=== PATIENT | female | born 1985 | race Hispanic/Latino ===

== ENCOUNTER 2018-02-23 18:54 | Emergency (ER) | payer MEDICAID, OTHER ==
[2018-02-23 19:47] LABS: APPEARANCE,URINE CLEAR (CLEAR); BILIRUBIN,URINE NEGATIVE (NEGATIVE); COLOR,URINE YELLOW (YELLOW); GLUCOSE, URINE (UA) NEGATIVE (NEGATIVE); KETONES,URINE 5 mg/dL (NEGATIVE); LEUKOCYTE ESTERASE ,URINE SMALL (NEGATIVE); NITRATE,URINE NEGATIVE (NEGATIVE); OCCULT BLOOD,URINE TRACE-INTACT (NEGATIVE); PROTEIN,URINE NEGATIVE (NEGATIVE); UROBILINOGEN,URINE 0.2 mg/dL (0.2-1.0)
[2018-02-23 19:56] LABS: BACTERIA,URINE Few /HPF (None Seen); RBC,URINE 0-1 /HPF (0-1)
[2018-02-23] MEDS ORDERED: ONDANSETRON ODT 4 MG TAB ONE (19:59)
== END 2018-02-23 22:46 | disposition home or self-care (01) ==
LOC: EDH 18:54
DX: O21.9 Vomiting of pregnancy, unspecified (principal); Z3A.15 15 weeks gestation of pregnancy
CPT/HCPCS: 76805; 81001

== ENCOUNTER 2018-07-27 10:47 | Observation (INO) | payer MEDICAID ==
[~2018-07-27] VITALS: Ht 160 cm; Wt 82.6 kg
[2018-07-27] MEDS ORDERED: LACTATED RINGERS 1000ML 1,000 ML IV SCH (12:00)
[2018-07-27 12:37] LABS: APPEARANCE,URINE Clear (CLEAR); BILIRUBIN,URINE Negative (NEGATIVE); COLOR,URINE Yellow (YELLOW); GLUCOSE, URINE (UA) Negative (NEGATIVE); KETONES,URINE >=80 mg/dL (NEGATIVE); LEUKOCYTE ESTERASE ,URINE Trace (NEGATIVE); NITRATE,URINE Negative (NEGATIVE); OCCULT BLOOD,URINE Negative (NEGATIVE); PROTEIN,URINE Negative (NEGATIVE)
[2018-07-27 12:53] LABS: BACTERIA,URINE Rare /HPF (None Seen); RBC,URINE 0-1 /HPF (0-1); SQUAMOUS EPITHELIAL CELL,UR Few /HPF (0-2); WBC,URINE 0-1 /HPF (0-1)
[2018-07-27] MEDS ORDERED: ACETAMINOPHEN EXTRA STRENGTH 500 MG TABLET PO SCH (13:00)
== END 2018-07-27 15:25 | disposition home or self-care (01) ==
LOC: EDH 10:47 → LDH 10:48
PROVIDERS: ADMIT Obstetrics & Gynecology; ATTEND Obstetrics & Gynecology
DX: O60.03 Preterm labor without delivery, third trimester (principal); O21.2 Late vomiting of pregnancy; Z3A.36 36 weeks gestation of pregnancy
CPT/HCPCS: 81001; 96360; 96361 ×2; 99284; G0378 ×5

== ENCOUNTER 2019-01-28 16:19 | Emergency (ER) | payer MEDICAID, OTHER ==
[~2019-01-28 16:19] MED LIST: PNV1TABL17 PO
[2019-01-28] MEDS ORDERED: LIDOCAINE 5% TOPICAL PATCH TP ONE (16:34)
[2019-01-28] MEDS ORDERED: ACETAMINOPHEN EXTRA STRENGTH 500 MG TABLET ONE (16:34)
[2019-01-28] MEDS ORDERED: CYCLOBENZAPRINE HCL 10 MG TABLET ONE (16:34)
== END 2019-01-28 17:38 | disposition home or self-care (01) ==
LOC: EDH 16:19
DX: M54.5 Low back pain (principal)
CPT/HCPCS: 81025

== ENCOUNTER 2019-11-11 22:20 | Emergency (ER) | payer MEDICAID ==
[2019-11-11] MEDS ORDERED: SODIUM CHLORIDE 0.9% 1000ML 1,000 ML IV ONE (22:21)
[2019-11-11] MEDS ORDERED: ONDANSETRON HCL 4 MG/2 ML VIAL ONE ×2 (22:44→22:48)
[2019-11-11 23:00] LABS: BASOPHILS % (AUTO) 0.2 % (0.0-5.0); EOSINOPHILS % (AUTO) 1.2 % (0.0-8.0); HEMATOCRIT 37.3 % (36-48); LYMPHOCYTES % (AUTO) 26.2 % (21.0-51.0); MEAN CORPUSCULAR HEMOGLOBIN 29.4 pg (27.0-33.0); MEAN CORPUSCULAR HGB CONC 33.2 g/dL (32.0-36.0); MEAN CORPUSCULAR VOLUME 88.4 fL (79-99); MONOCYTES % (AUTO) 8.3 % (3.0-13.0); NEUTROPHILS % (AUTO) 63.8 % (40.0-77.0); PLATELET COUNT (AUTO) 347 K/uL (130-400); RED BLOOD CELL COUNT(AUTO) 4.22 MIL/uL (4.00-5.50); RED CELL DISTRIBUTION WIDTH 13.4 % (11.0-15.5); WHITE BLOOD COUNT (AUTO) 8.8 K/uL (4.8-10.8)
[2019-11-11 23:14] LABS: CREATININE 0.7 mg/dL (0.5-1.5); POTASSIUM 3.7 mmol/L (3.5-5.1)
[2019-11-11 23:18] LABS: ALBUMIN 3.3 g/dL (3.5-5.0); BILIRUBIN,TOTAL 0.4 mg/dL (0.2-1.0); TOTAL PROTEIN, SERUM 7.4 g/dL (6.0-8.3)
== END 2019-11-12 00:02 | disposition home or self-care (01) ==
LOC: EDH 22:20
DX: O21.0 Mild hyperemesis gravidarum (principal); Z98.890 Other specified postprocedural states; Z3A.13 13 weeks gestation of pregnancy
CPT/HCPCS: 36415; 80053; 85025; 96361; 96374; 99283; J2405; J7030

== ENCOUNTER 2019-12-05 22:51 | Emergency (ER) | payer MEDICAID ==
[2019-12-05] MEDS ORDERED: SODIUM CHLORIDE 0.9% 1000ML 1,000 ML IV ONE (22:52)
[2019-12-06] MEDS ORDERED: ONDANSETRON HCL 4 MG/2 ML VIAL ONE (00:29)
[2019-12-06 01:02] LABS: APPEARANCE,URINE Clear (CLEAR); BILIRUBIN,URINE Negative (NEGATIVE); COLOR,URINE Yellow (YELLOW); GLUCOSE, URINE (UA) Negative (NEGATIVE); KETONES,URINE Negative (NEGATIVE); LEUKOCYTE ESTERASE ,URINE Trace (NEGATIVE); NITRATE,URINE Negative (NEGATIVE); OCCULT BLOOD,URINE Negative (NEGATIVE); PROTEIN,URINE Negative (NEGATIVE)
[2019-12-06 01:37] LABS: CREATININE 0.5 mg/dL (0.5-1.5); POTASSIUM 3.4 mmol/L (3.5-5.1)
[2019-12-06 01:40] LABS: ALBUMIN 3.1 g/dL (3.5-5.0); BILIRUBIN,TOTAL 0.3 mg/dL (0.2-1.0); TOTAL PROTEIN, SERUM 7.2 g/dL (6.0-8.3)
[2019-12-06 01:43] LABS: BACTERIA,URINE None Seen /HPF (None Seen); MUCUS,URINE Few LPF (None Seen); RBC,URINE 0-1 /HPF (0-1); SQUAMOUS EPITHELIAL CELL,UR Few /HPF (0-2)
[2019-12-06 01:44] LABS: BASOPHILS % (AUTO) 0.2 % (0.0-5.0); HEMATOCRIT 36.8 % (36-48); LYMPHOCYTES % (AUTO) 20.9 % (21.0-51.0); MEAN CORPUSCULAR HEMOGLOBIN 29.6 pg (27.0-33.0); MEAN CORPUSCULAR HGB CONC 33.7 g/dL (32.0-36.0); MEAN CORPUSCULAR VOLUME 87.8 fL (79-99); MONOCYTES % (AUTO) 7.5 % (3.0-13.0); NEUTROPHILS % (AUTO) 70.1 % (40.0-77.0); PLATELET COUNT (AUTO) 357 K/uL (130-400); RED BLOOD CELL COUNT(AUTO) 4.19 MIL/uL (4.00-5.50); RED CELL DISTRIBUTION WIDTH 13.5 % (11.0-15.5); WHITE BLOOD COUNT (AUTO) 9.9 K/uL (4.8-10.8)
== END 2019-12-06 02:32 | disposition home or self-care (01) ==
LOC: EDH 22:51
DX: O21.0 Mild hyperemesis gravidarum (principal); O26.892 Other specified pregnancy related conditions, second trimester; E86.9 Volume depletion, unspecified; Z3A.17 17 weeks gestation of pregnancy
CPT/HCPCS: 36415; 80053; 81001; 85025; 87088; 96361; 96374; 99283; J2405; J7030

== ENCOUNTER 2022-03-04 21:01 | Emergency (ER) | payer MEDICAID ==
[~2022-03-04] VITALS: Ht 160 cm; Wt 74.8 kg
[2022-03-04 21:02] VITALS: BP 137/86
[2022-03-04] MEDS ORDERED: NAPR-1180 PO (21:27)
[2022-03-04] MEDS ORDERED: GABA300C PO (21:27)
[2022-03-04] MEDS ORDERED: GABAPENTIN 300 MG CAPSULE PO SCH (21:30)
[2022-03-04] MEDS ORDERED: KETOROLAC 60 MG VIAL (30MG/ML) IM ONE ×2 (21:30→21:35)
== END 2022-03-04 21:50 | disposition home or self-care (01) ==
LOC: EDH 21:01
DX: N64.4 Mastodynia (principal); Z98.890 Other specified postprocedural states
CPT/HCPCS: 99283; 96372; J1885

== ENCOUNTER 2024-10-28 18:41 | Emergency (ER) | payer MEDICAID, OTHER ==
[~2024-10-28] VITALS: Ht 160 cm; Wt 81.6 kg
[~2024-10-28 18:41] MED LIST changes: +GABA300C PO; +NAPR-1180 PO
[2024-10-28 19:01] LABS: APPEARANCE,URINE CLOUDY (CLEAR); GLUCOSE, URINE (UA) NEGATIVE (NEGATIVE); LEUKOCYTE ESTERASE ,URINE 500 Leu/uL (NEGATIVE); NITRATE,URINE NEGATIVE (NEGATIVE); OCCULT BLOOD,URINE NEGATIVE (NEGATIVE)
[2024-10-28 19:27] LABS: CREATININE 1.0 mg/dL (0.5-1.0); GLOMERULAR FILTR. RATE CALC 74.0 mL/min (>90); GLUCOSE,RANDOM 138.0 mg/dL (70-105); SODIUM SERUM 138.0 mmol/L (136-145); UREA NITROGEN, BLOOD 9.0 mg/dL (7-18)
[2024-10-28 19:28] LABS: SQUAMOUS EPITHELIAL CELL,UR MANY /HPF (0-2)
[2024-10-28 19:31] LABS: IMMATURE GRANULOCYTE ABSOLUTE 0.02 K/uL (0-1); NUCLEATED RED BLOOD CELLS 0.0 % (0.0-0.19); PLATELET COUNT (AUTO) 445 K/uL (130-400); RED BLOOD CELL COUNT(AUTO) 4.29 MIL/uL (4.00-5.50); RED CELL DISTRIBUTION WIDTH 13.7 % (11.0-15.5); WHITE BLOOD COUNT (AUTO) 8.9 K/uL (4.8-10.8)
--- NOTE | 2024-10-28 20:06 | ERN ---
General Chief Complaint: Chest Wall Pain Stated Complaint: CHEST WALL PAIN X ONE WEEK Time Seen by MD: 18:44 Time Seen by Midlevel: 18:44 Source: patient History of Present Illness Initial Comments 39-year-old female who presents to the emergency department due to chest pain onset last night. Patient reports she had a similar pain last week that lasted three days. She was seen earlier at [facility]. Patient states she has been taking ibuprofen last dose at 10:00 a.m.. Denies any shortness of breath, abdominal pain, nausea, vomiting or further associated symptoms. PMHx PCOS Allergies: Coded Allergies: No Known Allergies (Unverified Allergy, Unknown, 07/27/18) Home Meds Active Scripts Cephalexin (Cephalexin) 500 Mg Tablet, 1 TAB PO BID for 7 Days, #14 TAB 0 Refills Prov:JOEY STINSON 10/28/24 Gabapentin (Neurontin) 300 Mg Capsule, 300 MG PO BID, #60 CAP Prov:MORENO JOSHI 03/04/22 Naproxen (Naprosyn) 500 Mg Tablet, 500 MG PO BIDPC, #60 TAB Prov:MORENO JOSHI 03/04/22 Reported Medications Pnv Cmb#21/Iron/Folic Acid ( Complete Caplet) 1 Each Tablet, 1 EACH PO DAILY, TAB 08/14/18 Past Medical History Past Medical History: Other Medical History Other: PCOS Past Surgical History: BTL, Surgical History Other: TUBAL LIGATION Family History Family History: Negative Social History Social History: Lives with family Female( History) LMP: Oct 12, 2024 ROS Dictation Constitutional: Negative for fever,chills, and weight loss Eyes: Negative for injury, pain,redness, and discharge ENT: Negative for injury,pain or swelling Cardiovascular: Positive for chest pain Negative for palpitations, and edema Respiratory: Negative for shortness of breath, cough, and wheezing, Abdomen/GI: Negative for abdominal pain, nausea, vomiting, diarrhea, and constipation Back: Negative for injury and pain : Negative for painful urination, bleeding or discharge MS/Extremity: Negative for injury and deformity Skin: Negative for rash, and discoloration Neuro: Negative for headache, weakness, numbness, tingling, and seizure Psych: Negative for suicide ideation, homicidal ideation, and hallucinations Physical Exam Physical Exam Dictation General: awake, alert, no acute distress Head/Face: Normocephalic, atraumatic Eyes: PERRL, EOMI, normal conjunctiva ENT: oral cavity clear, oral mucosa moist Neck: Supple, normal range of motion Cardiovascular: RRR, normal S1/S2 Respiratory: CTAB, no respiratory distress, no rales or wheezes Skin: Warm, dry, normal turgor, no rash MS/Extremity: Pulses equal, no cyanosis, neurovascular intact, FROM Neuro: COAx4, GCS 15, strength 5/5, CN 2-12 intact, normal cerebellar exam, normal gait Psych: Normal behavior, mood, and affect normal Results Laboratory and Microbiology Lab and Micro Result Laboratory Tests Test 10/28/24 18:55 10/28/24 19:03 10/28/24 20:17 Urine Color LIGHT-YELLOW (YELLOW) Urine Appearance CLOUDY (CLEAR) H Urine pH 7.0 (5.0-8.0) Urine Specific [place] 1.020 (1.001-1.031) Urine Protein NEGATIVE mg/dL (NEGATIVE) Urine Glucose (UA) NEGATIVE mg/dL (NEGATIVE) Urine Ketones NEGATIVE mg/dL (NEGATIVE) Urine Occult Blood NEGATIVE (NEGATIVE) Urine Nitrate NEGATIVE (NEGATIVE) Urine Bilirubin NEGATIVE mg/dL (NEGATIVE) Urine Urobilinogen 0.2 mg/dL (0.2-1.0) Urine Leukocyte Esterase 500 Ana/uL (NEGATIVE) H Urine RBC 2-5 /HPF (0-1) H Urine WBC 51-100 /HPF (0-1) H Urine Squamous Epithelial Cells MANY /HPF (0-2) Urine Bacteria FEW /HPF (None Seen) Urine HCG, Qualitative NEGATIVE (NEGATIVE) White Blood Count 8.9 K/uL (4.8-10.8) Red Blood Count 4.29 MIL/uL (4.00-5.50) Hemoglobin 12.5 g/dL (12.0-16.0) Hematocrit 36.6 % (36-48) Mean Corpuscular Volume 85.3 fL (79-99) Mean Corpuscular Hemoglobin 29.1 pg (27.0-33.0) Mean Corpuscular Hemoglobin Concent 34.2 g/dL (32.0-36.0) Red Cell Distribution Width 13.7 % (11.0-15.5) Platelet Count 445 K/uL (130-400) H Mean Platelet Volume 9.6 fL (7.5-10.5) Immature Granulocyte % (Auto) 0.2 % (0-1) Neutrophils (%) (Auto) 56.9 % (40.0-77.0) Lymphocytes (%) (Auto) 31.8 % (21.0-51.0) Monocytes (%) (Auto) 6.4 % (3.0-13.0) Eosinophils (%) (Auto) 4.1 % (0.0-8.0) Basophils (%) (Auto) 0.6 % (0.0-5.0) Neutrophils # (Auto) 5.1 K/uL (1.8-7.7) Lymphocytes # (Auto) 2.8 K/uL (1.0-4.8) Monocytes # (Auto) 0.6 K/uL (0.1-1.0) Eosinophils # (Auto) 0.37 K/uL (0.00-0.70) Basophils # (Auto) 0.05 K/uL (0.00-0.20) Absolute Immature Granulocyte (auto 0.02 K/uL (0-1) Nucleated Red Blood Cells 0.0 % (0.0-0.19) Sodium Level 138 mmol/L (136-145) Potassium Level 3.6 mmol/L (3.5-5.1) Chloride Level 105 mmol/L (101-111) Carbon Dioxide Level 23 mmol/L (21-32) Blood Urea Nitrogen 9 mg/dL (7-18) Creatinine 1.0 mg/dL (0.5-1.0) Glomerular Filtration Rate Calc 74 mL/min (>90) Random Glucose 138 mg/dL (70-105) H Total Calcium 8.2 mg/dL (8.5-10.1) L Troponin I High Sensitivity < 4 ng/L (4-50) L < 4 ng/L (4-50) L Labs Reviewed?: Yes EKG/XRAY/US/CT/MRI EKG Comment Date: 10/28/2024 Time: 1900 Rate: 81 EKG interpretation: Sinus rhythm, no STEMI Reviewed by ED Attending X-RAY Comment REASON: CP ORDERING PHYSICIAN: JOEY STINSON PROCEDURE: CXR1VW - CHEST 1VW EXAM: CR Chest, 1 View. CLINICAL HISTORY: CP COMPARISON: None provided. FINDINGS: LUNGS: There is no mass, infiltrate, or acute pulmonary abnormality. PLEURAL SPACES: No pleural effusion or pneumothorax. MEDIASTINUM: The cardiomediastinal silhouette is within normal limits. BONES: No aggressive appearing osseous lesion seen. IMPRESSION: No acute cardiopulmonary pathology is evident. /[place] DICTATED BY: SPARKLE CORNELIUS MD DATE: 10/28/242115 MDM MDM: Differential diagnosis: Muscular chest pain, acid reflux, AL Rationale: 39-year-old female who presents to the emergency department due to c hest pain onset last night. Patient reports she had a similar pain last week that lasted three days. She was seen earlier at [facility]. Patient states she has been taking ibuprofen last dose at 10:00 a.m.. Denies any shortness of breath, abdominal pain, nausea, vomiting or further associated symptoms. PMHx PCOS Labs obtained CBC nonspecific, chemistry nonspecific, troponin within normal limits x2. EKG within normal limits. UA indicates a urinary tract infection with 500 leukocyte esterase and 51-100 WBCs. Patient was administered ketorolac and Rocephin in the ED. Antibiotics prescribed for outpatient treatment. Patient educated for findings and diagnosis. Advised to follow up with PCP. Return to the emergency department for any worsening symptoms. Patient verbalized understanding. Patient stable for discharge. There are no social concerns with this patient. I independently interpreted the test that were performed, results were reviewed by me and considered findings on radiology if ordered. Medical management and examination interpretation discussions were had by me with other qualified healthcare professionals as indicated for the patient's care. ED Course Orders Procedure Category Date Status Time Cbc With Differential LAB 10/28/24 Complete 18:48 Basic Metabolic Panel LAB 10/28/24 Complete 18:48 Urinalysis LAB 10/28/24 Complete W/Microscopic 18:48 Troponin I High LAB 10/28/24 Complete Sensitivity 18:48 12 Lead Ekg Tracing- EKG 10/28/24 Logged Technical 18:48 Chest 1vw RAD 10/28/24 Resulted 18:48 Culture Urine BANDAR 10/28/24 In Process 19:27 ,Urine Test LAB 10/28/24 Complete 19:49 Troponin I High LAB 10/28/24 Complete Sensitivity 20:12 Ketorolac PHA 10/28/24 Complete Tromethamine 15mg/Ml 20:30 Ceftriaxone 1g Vial PHA 10/28/24 Complete (Rocephine 1g Inj) 20:30 Current Medications Medications (Trade) Dose Ordered Sig/Kamala Route PRN Reason Start Time Stop Time Status Last Admin Dose Admin Ceftriaxone Sodium (ROCEphine 1G INJ) 1 gm ONCE ONCE IM 10/28/24 20:30 10/28/24 20:35 DC 10/28/24 20:44 Ketorolac Tromethamine (toRADol) 15 mg ONCE ONCE IM 10/28/24 20:30 10/28/24 20:35 DC 10/28/24 20:45 Vital Signs Date Time Temp Pulse Resp B/P (MAP) Pulse Ox O2 Delivery O2 Flow Rate FiO2 10/28/24 18:51 98.2 82 16 130/82 98 Room Air* 0 21 10/28/24 18:44 98.2 85 16 132/84 99 Room Air 0 DX & DISP Disposition: Discharge Departure Impression: Primary Impression: Chest pain with low risk for cardiac etiology Additional Impression: UTI (urinary tract infection) Condition: Stable Scripts Cephalexin (Cephalexin) 500 Mg Tablet 1 TAB PO BID for 7 Days, #14 TAB 0 Refills Prov: JOEY STINSON 10/28/24 Additional Instructions: Discharge home. Rest. Follow up with primary care in 24 hours. Return to the ER for any acute changes or worsening symptoms. If any medications were prescribed take as directed. Okay to continue home medications unless otherwise discussed during your visit in the emergency room today. Patient was also advised to follow-up with primary care physician in 1 to 2 days for continued monitoring. Referrals: NONE (PCP) I performed the substantive portion of the visit. I have reviewed and personally made and approve the management plan that is documented in the notes by myself or the ROBB. I acknowledge full responsibility for the patient's management plan. JOEY STINSON Oct 28, 2024 20:06
--- NOTE | 2024-10-28 20:16 | HMCIMG ---
EXAM: CR Chest, 1 View. CLINICAL HISTORY: CP COMPARISON: None provided. FINDINGS: LUNGS: There is no mass, infiltrate, or acute pulmonary abnormality. PLEURAL SPACES: No pleural effusion or pneumothorax. MEDIASTINUM: The cardiomediastinal silhouette is within normal limits. BONES: No aggressive appearing osseous lesion seen. IMPRESSION: No acute cardiopulmonary pathology is evident. /[place]
[2024-10-28] MEDS ORDERED: CEPH500T PO (21:03)
[2024-10-28 21:06] VITALS: BP 125/80; PULSE 80; RESP 16; TEMP 98.3; O2SAT 98
--- NOTE | 2024-10-29 06:37 | EKG ---
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
== END 2024-10-28 21:13 | disposition home or self-care (01) ==
LOC: EDH 18:41
DX: R07.89 Other chest pain (principal); N39.0 Urinary tract infection, site not specified; Z79.899 Other long term (current) drug therapy; Z98.51 Tubal ligation status
CPT/HCPCS: 99285; 71045; 84484 ×2; 80048; 85025; 87086; 81001; 81025; 36415; 96372 ×2; 93005; J1885; J0696

== ENCOUNTER 2024-10-30 01:27 | Emergency (ER) | payer OTHER ==
[~2024-10-30] VITALS: Ht 160 cm; Wt 86.2 kg
[~2024-10-30 01:27] MED LIST changes: +CEPH500T PO
--- NOTE | 2024-10-30 01:57 | ERN ---
ED Note History of Present Illness Stated Complaint: C/O CHEST WALL PAIN; Chief Complaint: Chest Wall Pain Time Seen by MD: :34 Time Seen by Midlevel: 01:34 Dictation: The patient is a 39-year-old female with past medical history of PCOS who presents to the emergency department with complaints of left-sided chest pain. Patient reports chest pain has been going on for two weeks. Was seen at [facility] on Monday and was discharged. Patient was also seen here a few days ago and released for chest wall pain. Patient denies any chest trauma. Reports pain is worse with movement. Patient stated that this left-sided breast pain has been going on for almost 6 years and initially she was evaluated by Dr. Correa, infant babysitter who felt that it was a hormonal imbalance and her prolactin levels were high. Around the time when she had the pain she also had nipple discharge which prompted checking prolactin levels. Patient was told she had high prolactin levels and she was recommended control pills to balance her hormones. Eventually she switched OBGYN and has been placed on control again to balance her hormones and she was also told she might have PCOS. Ultrasound of the breast 2 years ago showed a small cyst in the left breast. Patient has been to multiple doctors and hospitals and was not convinced with the explanations. She stopped taking the oral contraceptive a few weeks ago. She has been suffering severe pain in the left breast lateral area more towards anterior axillary line for the past 1 week and today she was crying extremely loudly and appeared uncomfortable due to excruciating pain Temperature 98 pulse 86 respirations 20 blood pressure 135/87 with a pulse oximetry of 98% on room air Allergies: Coded Allergies: No Known Allergies (Unverified Allergy, Unknown, 07/27/18) Home Meds Active Scripts Oxycodone HCl (Oxycodone HCl) 5 Mg Tablet, 1 TAB PO [id number] PRN for pain for 5 Days, #10 TAB 0 Refills Prov:MELODY CARROLL MD 10/30/24 Meloxicam (Meloxicam) 7.5 Mg Tablet, 1 TAB PO DAILY for breast pain for 15 Days, #15 TAB 0 Refills Prov:MELODY CARROLL MD 10/30/24 Cephalexin (Cephalexin) 500 Mg Tablet, 1 TAB PO BID for 7 Days, #14 TAB 0 Refills Prov:JOEY STINSON 10/28/24 Gabapentin (Neurontin) 300 Mg Capsule, 300 MG PO BID, #60 CAP Prov:MORENO JOSHI 03/04/22 Naproxen (Naprosyn) 500 Mg Tablet, 500 MG PO BIDPC, #60 TAB Prov:MORENO JOSHI 03/04/22 Reported Medications Pnv Cmb#21/Iron/Folic Acid ( Complete Caplet) 1 Each Tablet, 1 EACH PO DAILY, TAB 08/14/18 Past Medical History Past Medical History: No Pertinent History Additional Past Medical Hx: PCOS Surgical History: Other, Surgical History Other: TUBAL LIGATION Family History: Negative Social History: Lives with family History: Not Applicable (Patient had tubal ligation) LMP: Oct 09, 2024 RN Note Reviewed/Agreed w/PFSH: Yes Review of System Dictation Constitutional: Negative for fever,chills, and weight loss Eyes: Negative for injury, pain,redness, and discharge ENT: Negative for injury,pain or swelling Cardiovascular: Negative for palpitations, and edema positive for chest pain Respiratory: Negative for shortness of breath, cough, and wheezing, Abdomen/GI: Negative for abdominal pain, nausea, vomiting, diarrhea, and constipation Back: Negative for injury and pain : Negative for injury, bleeding and discharge MS/Extremity: Negative for injury and deformity Skin: Negative for rash, and discoloration Neuro: Negative for headache, weakness, numbness, tingling, and seizure Psych: Negative for suicide ideation, homicidal ideation, and hallucinations Initial Vital Sign VS Vital Signs Date Time Temp Pulse Resp B/P (MAP) Pulse Ox O2 Delivery O2 Flow Rate FiO2 10/30/24 01:28 98.8 86 20 135/87 98 Room Air 10/30/24 02:15 0 21 Physical Exam Dictation Vital Signs reviewed General Appearance: Alert, oriented x 3, no acute distress, well developed, nourished. Head and Face: non-traumatic. Eyes: PERRL, pink conjunctivas, eyelid no trauma, anterior chamber with arcus senilis. Ears: Pinnas intact and no signs of trauma or erythema ear canals clear and no discharge TM no erythema Nose: No discharge, no bleeding. Oropharynx: Mouth normal, tongue pink. pharynx clear,no erythema, tonsils no exudates, no abscesses noted, mucous membrane moist Neck: Supple, non-tender, no thyromegaly, no masses, no JVD, no bruits Breast: Left breast lateral area is extremely tender to touch no erythema induration or any drainage no open wounds. Chest: Left-sided chest tenderness, no crepitus, no paradoxical movement, no retractions no wounds to chest Lungs:Clear, well-ventilated, symmetric, no rales, no wheezing, no rhonchi, no stridor, good breath sounds bilaterally Heart: Regular rate, regular rhythm, no murmur, no gallops Vascular: no peripheral edema, Abdomen: Soft, positive bowel sounds, nondistended, no guarding, nontender, no rebound, no masses no hepatomegaly, no splenomegaly, no Estes's sign, no hernias. Rectal: Deferred Genital: Deferred Neurological: Normal speech, motor function intact, sensory function intact Musculoskeletal: Neck nontender, full range of motion, back nontender, full range of motion, Extremities: nontender, full range of motion Skin: Color pink, dry, no turgor, no rash, no lacerations, no abrasions, no contusions. Lymphatic: Deferred Results (Laboratory/Radiology) Laboratory/Radiology Laboratory Tests Test 10/30/24 01:58 White Blood Count 11.2 K/uL (4.8-10.8) H Red Blood Count 4.42 MIL/uL (4.00-5.50) Hemoglobin 12.8 g/dL (12.0-16.0) Hematocrit 37.9 % (36-48) Mean Corpuscular Volume 85.7 fL (79-99) Mean Corpuscular Hemoglobin 29.0 pg (27.0-33.0) Mean Corpuscular Hemoglobin Concent 33.8 g/dL (32.0-36.0) Red Cell Distribution Width 13.7 % (11.0-15.5) Platelet Count 451 K/uL (130-400) H Mean Platelet Volume 9.2 fL (7.5-10.5) Immature Granulocyte % (Auto) 0.3 % (0-1) Neutrophils (%) (Auto) 58.3 % (40.0-77.0) Lymphocytes (%) (Auto) 29.4 % (21.0-51.0) Monocytes (%) (Auto) 7.8 % (3.0-13.0) Eosinophils (%) (Auto) 3.8 % (0.0-8.0) Basophils (%) (Auto) 0.4 % (0.0-5.0) Neutrophils # (Auto) 6.5 K/uL (1.8-7.7) Lymphocytes # (Auto) 3.3 K/uL (1.0-4.8) Monocytes # (Auto) 0.9 K/uL (0.1-1.0) Eosinophils # (Auto) 0.43 K/uL (0.00-0.70) Basophils # (Auto) 0.05 K/uL (0.00-0.20) Absolute Immature Granulocyte (auto 0.03 K/uL (0-1) Nucleated Red Blood Cells 0.0 % (0.0-0.19) Sodium Level 138 mmol/L (136-145) Potassium Level 3.5 mmol/L (3.5-5.1) Chloride Level 105 mmol/L (101-111) Carbon Dioxide Level 26 mmol/L (21-32) Blood Urea Nitrogen 14 mg/dL (7-18) Creatinine 0.7 mg/dL (0.5-1.0) Glomerular Filtration Rate Calc 114 mL/min (>90) Random Glucose 122 mg/dL (70-105) H Total Calcium 8.4 mg/dL (8.5-10.1) L Total Bilirubin 0.3 mg/dL (0.2-1.0) Aspartate Amino Transf (AST/SGOT) 16 U/L (10-37) Alanine Aminotransferase (ALT/SGPT) 18 U/L (12-78) Alkaline Phosphatase 99 U/L (50-136) Total Creatine Kinase 44 U/L (21-232) Troponin I High Sensitivity < 4 ng/L (4-50) L Total Protein 7.3 g/dL (6.0-8.3) Albumin 3.6 g/dL (3.5-5.0) Serum Test, Qualitative NEGATIVE (NEGATIVE) Labs Reviewed?: Yes ED Course ED Course Orders Procedure Category Date Status Time Cbc With Differential LAB 10/30/24 Complete 01:52 Chest 1vw RAD 10/30/24 Resulted 01:52 Creatine Kinase, Total LAB 10/30/24 Complete 01:52 Troponin I High LAB 10/30/24 Complete Sensitivity 01:52 Cyclobenzaprine Hcl PHA 10/30/24 Complete (Cyclobenzaprine Hcl 02:00 Ketorolac 60mg/2ml PHA 10/30/24 Complete (Toradol 60mg/2ml) 02:00 12 Lead Ekg Tracing- EKG 10/30/24 Logged Technical 01:52 Testing, LAB 10/30/24 Complete Serum Hcg 02:30 Hydromorphone 1 Mg PHA 10/30/24 Complete Inj (Dilaudid 1mg Inj 03:00 Ondansetron 4mg Inj PHA 10/30/24 Complete (Zofran 4mg Inj) 03:00 Us Breast Limited US 10/30/24 Resulted Unilateral 02:31 Comprehensive LAB 10/30/24 Complete Metabolic Panel 01:58 Current Medications Medications (Trade) Dose Ordered Sig/Kamala Route PRN Reason Start Time Stop Time Status Last Admin Dose Admin Cyclobenzaprine HCl (Cyclobenzaprine HCl) 10 mg ONCE ONCE PO 10/30/24 02:00 10/30/24 02:35 DC 10/30/24 02:08 Hydromorphone HCl (DiLAUDid 1MG INJ) 1 mg ONCE ONCE IVP 10/30/24 03:00 10/30/24 03:01 DC 10/30/24 03:13 Ketorolac Tromethamine (toRADol 60MG/ 2ML) 60 mg ONCE ONCE IM 10/30/24 02:00 10/30/24 02:35 DC 10/30/24 02:08 Ondansetron HCl (zoFRAN 4MG INJ) 4 mg ONCE ONCE IVP 10/30/24 03:00 10/30/24 03:01 DC 10/30/24 03:13 Vital Signs Date Time Temp Pulse Resp B/P (MAP) Pulse Ox O2 Delivery O2 Flow Rate FiO2 10/30/24 02:15 98.8 86 18 132/91 99 Room Air* 0 21 10/30/24 01:28 98.8 86 20 135/87 98 Room Air We will perform diagnostic labs, advanced imaging and administer medications according to the patient's complaint. Once the results are available, will review and personally interpreted the labs to rule out any acute life- threatening emergency the trach require immediate intervention and treatment. I will then re-evaluate the patient after treatment and diagnostic exams have return to determine whether the patient requires any further testing, can safely be discharged home or need further admission to hospital for additional treatment and evaluation. Labs reviewed CBC showed a white count of 11.2 hemoglobin of 12.8 platelets 451. BNP 7 was with a normal limits potassium was 3.5. Chest x-ray was unremarkable for any infiltrates effusions. 5:00 a.m. left breast ultrasound was done which was unremarkable for any breast cysts or masses. Upon my re-evaluation multiple times she was much more comfortable able to talk and give me the whole history. I educated her on cyclical mastalgia and she needs to maintain a journal. Patient and spouse verbalized full understanding. I recommended that she follow up with her OBGYN and not abruptly stop her oral contraceptives. Medical Decision Making MDM The patient is a 39-year-old female with past medical history of PCOS who presents to the emergency department with complaints of left-sided chest pain. Patient reports chest pain has been going on for two weeks. Was seen at [facility] on Monday and was discharged. Patient was also seen here a few days ago and released for chest wall pain. Patient denies any chest trauma. Reports pain is worse with movement. Differential diagnosis: ACS, pneumonia, costochondritis, pneumothorax Need for hospitalization: Patient does not meet criteria for hospitalization. There are no social concerns with this patient. Problem List Problem List: (1) Cyclical mastalgia (2) Breast pain, left (3) PCOS (polycystic ovarian syndrome) DX & DISP Disposition: Discharge Departure Impression: Primary Impression: Breast pain, left Additional Impressions: PCOS (polycystic ovarian syndrome), Cyclical mastalgia Condition: Stable Scripts Oxycodone HCl (Oxycodone HCl) 5 Mg Tablet 1 TAB PO [id number] PRN for pain for 5 Days, #10 TAB 0 Refills Prov: MELODY CARROLL MD 10/30/24 Meloxicam (Meloxicam) 7.5 Mg Tablet 1 TAB PO DAILY for breast pain for 15 Days, #15 TAB 0 Refills Prov: MELODY CARROLL MD 10/30/24 Additional Instructions: Patient and the caregiver have been informed of all the diagnostic tests and the imaging conducted during the today's visit to the emergency room and has verbalized understanding of the results I have personally reviewed and interpreted all diagnostic exams performed here in the ER today as well as the vital signs documented by the nursing staff. The patient is now being discharged to home and should follow up with the primary care physician or the specialist as directed by the ER staff. Follow-up with primary care provider in 1 to 2 days. Take medications as directed here in the emergency room. Okay to continue home medications unless otherwise discussed during your visit in the emergency room today. Return to your nearest emergency room if symptoms worsen or if there is no improvement. Call 911 if you need immediate assistance. Take Tylenol or Motrin [id number] as needed and if no contraindications are present. Increase oral hydration. A wound culture or urine culture was ordered here in the emergency room department please follow-up with primary care provider and advise them to get repeat ports from our facility. If you had any [place] wrap/splints that were applied here, please do not remove them until you see your primary care or specialty. Referrals: SELF,REFERRAL (PCP) HANNAH CROUCH Oct 30, 2024 01:57 MELODY CARROLL MD Oct 30, 2024 05:01
[2024-10-30 02:07] LABS: IMMATURE GRANULOCYTE ABSOLUTE 0.03 K/uL (0-1); NUCLEATED RED BLOOD CELLS 0.0 % (0.0-0.19); PLATELET COUNT (AUTO) 451 K/uL (130-400); RED BLOOD CELL COUNT(AUTO) 4.42 MIL/uL (4.00-5.50); RED CELL DISTRIBUTION WIDTH 13.7 % (11.0-15.5); WHITE BLOOD COUNT (AUTO) 11.2 K/uL (4.8-10.8)
[2024-10-30] MEDS: CYCLOBENZAPRINE HCL 10 MG TABLET PO ONE (02:08)
[2024-10-30 02:16] LABS: CREATININE 0.7 mg/dL (0.5-1.0); GLOMERULAR FILTR. RATE CALC 114.0 mL/min (>90); GLUCOSE,RANDOM 122.0 mg/dL (70-105); SODIUM SERUM 138.0 mmol/L (136-145); UREA NITROGEN, BLOOD 14.0 mg/dL (7-18)
[2024-10-30 02:22] LABS: CREATINE KINASE, TOTAL 44.0 U/L (21-232)
--- NOTE | 2024-10-30 03:50 | HMCIMG ---
EXAM: CR Chest, 1 view CLINICAL HISTORY: Chest pain. COMPARISON: Chest radiograph dated 10/28/2024. FINDINGS: The lungs show no infiltrates or other acute findings. No pleural effusion or pneumothorax. The cardiomediastinal silhouette is within normal limits. No acute osseous abnormality. IMPRESSION: No acute cardiopulmonary process is evident. No interval changes. /[place]
--- NOTE | 2024-10-30 03:56 | HMCIMG ---
EXAM Ultrasound. Left breast. Complete. CLINICAL HISTORY Excruciating pain and tenderness in the left breast. As per patient, persistent pain for approximately 6 years. TECHNIQUE Sonographic evaluation of the entire left breast, including the retroareolar region, was performed using a linear transducer. COMPARISON None provided. FINDINGS Targeted evaluation of the left breast was performed at the 5:00, 6:00, 7:00, 8:00, and 9:00 o???clock positions, as indicated by the patient???s area of pain; no abnormality is evident in the area of concern. Solid Masses. None. Cystic Masses. None. Architectural Distortion. None. Acoustic Shadowing. None. Skin Thickening. None. Axillary Adenopathy. None. IMPRESSION Negative examination. No significant abnormality is evident in the area of concern. /[place]
[2024-10-30 03:59] LABS: ASPARTATE AMINOTRANSFERASE 16.0 U/L (10-37); TOTAL PROTEIN, SERUM 7.3 g/dL (6.0-8.3)
[2024-10-30] MEDS ORDERED: OXYC5TAB3 PO (04:59)
[2024-10-30] MEDS ORDERED: MELO-106 PO (04:59)
[2024-10-30 05:22] VITALS: BP 125/66; PULSE 70; RESP 18; TEMP 98.8; O2SAT 98
--- NOTE | 2024-10-30 07:22 | EKG ---
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
== END 2024-10-30 05:28 | disposition home or self-care (01) ==
LOC: EDH 01:27
DX: N64.4 Mastodynia (principal); E28.2 Polycystic ovarian syndrome; Z79.1 Long term (current) use of non-steroidal anti-inflammatories (NSAID); Z79.899 Other long term (current) drug therapy; Z98.51 Tubal ligation status
CPT/HCPCS: 99285; 96374; 71045; 96375; 82550; 84484; 80053; 84703; 85025; 36415; 76642; 93005; 96372; J1885; J1171; J2405

== ENCOUNTER 2024-11-03 23:11 | Emergency (ER) | payer OTHER ==
[~2024-11-03] VITALS: Ht 160 cm; Wt 81.6 kg
[~2024-11-03 23:11] MED LIST changes: +MELO-106 PO; +OXYC5TAB3 PO
--- NOTE | 2024-11-03 23:13 | NUR ---
UA CUP PROVIDED
[2024-11-04 01:10] LABS: IMMATURE GRANULOCYTE ABSOLUTE 0.01 K/uL (0-1); NUCLEATED RED BLOOD CELLS 0.0 % (0.0-0.19); PLATELET COUNT (AUTO) 498 K/uL (130-400); RED BLOOD CELL COUNT(AUTO) 4.34 MIL/uL (4.00-5.50); RED CELL DISTRIBUTION WIDTH 13.5 % (11.0-15.5); WHITE BLOOD COUNT (AUTO) 10.7 K/uL (4.8-10.8)
[2024-11-04 01:15] LABS: APPEARANCE,URINE CLEAR (CLEAR); GLUCOSE, URINE (UA) NEGATIVE (NEGATIVE); LEUKOCYTE ESTERASE ,URINE 250 Leu/uL (NEGATIVE); NITRATE,URINE NEGATIVE (NEGATIVE); OCCULT BLOOD,URINE +- (TRACE) (NEGATIVE)
[2024-11-04 01:18] LABS: ADD UA MICROSCOPIC YES; HCG,QUALITATIVE URINE NEGATIVE (NEGATIVE)
[2024-11-04 01:19] LABS: SQUAMOUS EPITHELIAL CELL,UR RARE /HPF (0-2)
[2024-11-04 01:39] LABS: CREATININE 0.6 mg/dL (0.5-1.0); GLOMERULAR FILTR. RATE CALC 118.0 mL/min (>90); GLUCOSE,RANDOM 110.0 mg/dL (70-105); SODIUM SERUM 138.0 mmol/L (136-145); UREA NITROGEN, BLOOD 8.0 mg/dL (7-18)
[2024-11-04] MEDS ORDERED: IOHEXOL-350 75 ML VIAL IV ONE (02:27)
--- NOTE | 2024-11-04 03:17 | HMCIMG ---
EXAM: CT chest with and without contrast. CLINICAL HISTORY: Chest pain on inhalation, rib dislocation. TECHNIQUE: Thin collimated axial CT images of the chest were obtained with sagittal and coronal reformatted images also submitted. CT scan done according to ALARA (As Low as Reasonably Achievable). CONTRAST USED: 50 mL Omnipaque 350. COMPARISON: Chest x-ray dated 10/30/24. FINDINGS: Mild left pleural effusion with underlying basal lung atelectasis. Mild right basilar scarring. No definitive pulmonary nodules. No pneumothorax. No pericardial effusion. The cardiac chambers and intrathoracic vessels are well opacified. The heart size is within normal limits. Coronary vessels and intrathoracic aorta are grossly normal. No significant axillary, supraclavicular, or mediastinal lymphadenopathy. No focal thyroid abnormality. Limited views of the upper abdomen demonstrate no abnormality. No acute or suspicious osseous abnormality. IMPRESSION: 1. Small left pleural effusion with associated basal atelectasis. No gross interval changes from the prior chest x-ray dated 10/30/24. /[place]
--- NOTE | 2024-11-04 04:24 | ERN ---
General Chief Complaint: Chest Wall Pain Stated Complaint: CHEST PAIN Time Seen by MD: 23:31 Source: patient History of Present Illness Initial Comments 39-year-old healthy female who has left chest pain. It is worse when she takes a large inspiratory breath and it feels like something is crackling underneath her skin when she takes a breath. It has been worked up with a an ultrasound of her breast which was negative for cysts. Chest x-rays have also been negative. The only thing that helps the pain is 800 mg ibuprofen or Vicodin, which she does not like because it makes her sleepy. She has no other symptoms no fevers no chills no other chest pain no cardiac pain. The symptoms really are restricted to her left chest wall whenever she takes a large breath. She does not experience this pain breathing out. Timing/Duration: 1 week Allergies: Coded Allergies: No Known Allergies (Unverified Allergy, Unknown, 07/27/18) Home Meds Active Scripts Oxycodone HCl (Oxycodone HCl) 5 Mg Tablet, 1 TAB PO [id number] PRN for pain for 5 Days, #10 TAB 0 Refills Prov:MELODY CARROLL MD 10/30/24 Meloxicam (Meloxicam) 7.5 Mg Tablet, 1 TAB PO DAILY for breast pain for 15 Days, #15 TAB 0 Refills Prov:MELODY CARROLL MD 10/30/24 Cephalexin (Cephalexin) 500 Mg Tablet, 1 TAB PO BID for 7 Days, #14 TAB 0 Refills Prov:JOEY STINSON 10/28/24 Gabapentin (Neurontin) 300 Mg Capsule, 300 MG PO BID, #60 CAP Prov:MORENO JOSHI 03/04/22 Naproxen (Naprosyn) 500 Mg Tablet, 500 MG PO BIDPC, #60 TAB Prov:MORENO JOSHI 03/04/22 Reported Medications Pnv Cmb#21/Iron/Folic Acid ( Complete Caplet) 1 Each Tablet, 1 EACH PO DAILY, TAB 08/14/18 Past Medical History Past Medical History: Other Medical History Other: PCOS Past Surgical History: Other, Surgical History Other: TUBAL LIGATION Family History Family History: Negative Social History Social History: Lives with family Female( History) History: Not Applicable LMP: Oct 09, 2024 ROS Dictation Review of systems are otherwise negative. No fevers no chills. No nausea no vomiting no diarrhea. No abdominal pain. No neurologic symptoms. No urinary symptoms. Physical Exam Orientation: (+) alert Head/Face Trauma: No Eye: bilateral eye normal inspection, bilateral eye PERRL, bilateral eye EOMI Ear, Nose, Throat: (+) hearing grossly normal, (+) normal ENT inspection, (+) moist mucous membraine Neck: (+) normal inspection, (+) supple, (+) full range of motion Respiratory Comment Patient has mild into intercostal muscle pain on her anterior left chest wall. Asking her to take a deep breath reproduces her pain. There is no swelling or tenderness in her left breast. Her right chest wall is benign. Heart: (+) regular, (+) no gallop Vascular: (+) no edema, (+) normal peripheral pulse Gastrointestinal: (+) soft, (+) non-tender, (+) bowel sound present Breast Exam: (+) normal breast exam Results Laboratory and Microbiology Lab and Micro Result Laboratory Tests Test 11/04/24 00:59 11/04/24 01:03 White Blood Count 10.7 K/uL (4.8-10.8) Red Blood Count 4.34 MIL/uL (4.00-5.50) Hemoglobin 12.4 g/dL (12.0-16.0) Hematocrit 37.4 % (36-48) Mean Corpuscular Volume 86.2 fL (79-99) Mean Corpuscular Hemoglobin 28.6 pg (27.0-33.0) Mean Corpuscular Hemoglobin Concent 33.2 g/dL (32.0-36.0) Red Cell Distribution Width 13.5 % (11.0-15.5) Platelet Count 498 K/uL (130-400) H Mean Platelet Volume 9.1 fL (7.5-10.5) Immature Granulocyte % (Auto) 0.1 % (0-1) Neutrophils (%) (Auto) 56.6 % (40.0-77.0) Lymphocytes (%) (Auto) 27.4 % (21.0-51.0) Monocytes (%) (Auto) 8.9 % (3.0-13.0) Eosinophils (%) (Auto) 6.5 % (0.0-8.0) Basophils (%) (Auto) 0.5 % (0.0-5.0) Neutrophils # (Auto) 6.0 K/uL (1.8-7.7) Lymphocytes # (Auto) 2.9 K/uL (1.0-4.8) Monocytes # (Auto) 1.0 K/uL (0.1-1.0) Eosinophils # (Auto) 0.69 K/uL (0.00-0.70) Basophils # (Auto) 0.05 K/uL (0.00-0.20) Absolute Immature Granulocyte (auto 0.01 K/uL (0-1) Nucleated Red Blood Cells 0.0 % (0.0-0.19) Sodium Level 138 mmol/L (136-145) Potassium Level 3.8 mmol/L (3.5-5.1) Chloride Level 104 mmol/L (101-111) Carbon Dioxide Level 28 mmol/L (21-32) Blood Urea Nitrogen 8 mg/dL (7-18) Creatinine 0.6 mg/dL (0.5-1.0) Glomerular Filtration Rate Calc 118 mL/min (>90) Random Glucose 110 mg/dL (70-105) H Total Calcium 8.8 mg/dL (8.5-10.1) Troponin I High Sensitivity 4 ng/L (4-50) Urine Color COLORLESS (YELLOW) Urine Appearance CLEAR (CLEAR) Urine pH 6.5 (5.0-8.0) Urine Specific [place] 1.009 (1.001-1.031) Urine Protein NEGATIVE mg/dL (NEGATIVE) Urine Glucose (UA) NEGATIVE mg/dL (NEGATIVE) Urine Ketones NEGATIVE mg/dL (NEGATIVE) Urine Occult Blood +- (TRACE) (NEGATIVE) H Urine Nitrate NEGATIVE (NEGATIVE) Urine Bilirubin NEGATIVE mg/dL (NEGATIVE) Urine Urobilinogen 0.2 mg/dL (0.2-1.0) Urine Leukocyte Esterase 250 Ana/uL (NEGATIVE) H Urine RBC 0-1 /HPF (0-1) Urine WBC 2-5 /HPF (0-1) H Urine Squamous Epithelial Cells RARE /HPF (0-2) Urine Bacteria None /HPF (None Seen) Urine HCG, Qualitative NEGATIVE (NEGATIVE) MDM Given the extensive workup the patient has had so far, the only thing I can think of is a chest CT with the and without contrast. I suspect it could be musculoskeletal pain with either a slipped rib or some intercostal muscle inflammation. The chest CT scan is the only thing that is missing from her workup so far between her primary care physician and prior ED visits. Patient's chemistry panel normal with a normal troponin. Hematology is also normal. Urine shows high esterase activity. Beta HCG negative. I do not think her urinary tract infection is causing her chest pain. But I will give her antibiotics for her urinary tract infection. ED Course Orders Procedure Category Date Status Time 12 Lead Ekg Tracing- EKG 11/04/24 Logged Technical 00:42 ,Urine Test LAB 11/04/24 Complete 00:42 Urinalysis Profile LAB 11/04/24 Complete 00:42 Troponin I High LAB 11/04/24 Complete Sensitivity 00:42 Cbc With Differential LAB 11/04/24 Complete 00:42 Basic Metabolic Panel LAB 11/04/24 Complete 00:42 Culture Urine BANDAR 11/04/24 In Process 01:18 Ct Chest W/Wo Contrast CT 11/04/24 Resulted 01:51 Iohexol (Omnipaque) PHA 11/04/24 Complete 02:27 Current Medications Medications (Trade) Dose Ordered Sig/Kamala Route PRN Reason Start Time Stop Time Status Last Admin Dose Admin Iohexol (Omnipaque) 75 ml STK-MED ONCE IV 11/04/24 02:27 11/04/24 02:27 DC Vital Signs Date Time Temp Pulse Resp B/P (MAP) Pulse Ox O2 Delivery O2 Flow Rate FiO2 11/04/24 03:54 98.4 80 20 105/65 99 Room Air* 0 21 11/04/24 02:04 98.4 80 20 97/63 99 Room Air* 0 21 11/03/24 23:13 98.2 80 18 165/87 100 Room Air DX & DISP Disposition: Discharge Departure Impression: Primary Impression: Breast pain, left Additional Impression: UTI (urinary tract infection) Condition: Stable Scripts Cephalexin Monohydrate (Keflex) 500 Mg Cap 500 MG PO QID for 7 Days, #28 CAP Prov: SANDRA CASTILLO MD 11/04/24 Additional Instructions: The CT scan does not give us a good reason for your unusual pain. I do highly suspect it is musculoskeletal in origin. I do not think it is air trapped in the soft tissues as that would show up on the CT scan. Your urine analysis still shows a large esterase activity so I have added a prescription for a urinary tract infection as well. Please follow-up with your primary care physician regarding further workup of the breast symptoms. Referrals: SELF,REFERRAL (PCP) SANDRA CASTILLO MD Nov 04, 2024 04:24
[2024-11-04] MEDS ORDERED: CEPH500B PO (04:35)
[2024-11-04 04:48] VITALS: BP 115/70; PULSE 75; RESP 20; TEMP 98.5; O2SAT 99
--- NOTE | 2024-11-04 07:26 | EKG ---
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
== END 2024-11-04 04:49 | disposition home or self-care (01) ==
LOC: EDH 23:11
DX: N64.4 Mastodynia (principal); N39.0 Urinary tract infection, site not specified; Z79.1 Long term (current) use of non-steroidal anti-inflammatories (NSAID); Z79.899 Other long term (current) drug therapy; Z98.51 Tubal ligation status
CPT/HCPCS: 99285; 84484; 80048; 85025; 87086; 81001; 81025; 36415; 71270; 93005; Q9967

== ENCOUNTER 2025-04-08 15:37 | Emergency (ER) | payer OTHER ==
[~2025-04-08] VITALS: Ht 160 cm; Wt 83.9 kg
[~2025-04-08 15:37] MED LIST changes: +CEPH500B PO
--- NOTE | 2025-04-08 15:50 | ERN ---
ED Note History of Present Illness Stated Complaint: BACK PAIN Chief Complaint: Back Pain-No Injury Time Seen by MD: 15:43 Dictation: PATIENT IS A 40-YEAR-OLD FEMALE HERE WITH COMPLAINTS OF DIFFUSE LUMBAR GREATER ON THE LEFT BACK PAIN SHE HAS HAD FOR 3-4 DAYS. NO FEVER NO CHILLS NO NAUSEA VOMITING NO CHANGE IN URINATION. SHE STATES SHE THINKS THAT IS A URINARY TRACT INFECTION AND WENT TO [facility] AND BOUGHT ANTIBIOTICS HOWEVER THEY DID NOT HELP. SHE STATES SHE ALSO TOOK AZO [id number] AND THAT DID NOT HELP WITH THE PA IN. HER DOCTOR'S IS AT [facility] [place], SHE HAS NOT BEEN OUT TO SEE YOUR PHYSICIAN. SHE DOES NOT HAVE A DESIGNATED WASTEW[employer]ATMENT PLANT CHEMIST HOME. NO CHANGE IN BOWEL OR BLADDER FUNCTION NO SADDLE PARESTHESIA DENIES ANY HISTORY OF BACK INJURIES OR SURGERIES Allergies: Coded Allergies: No Known Allergies (Unverified Allergy, Unknown, 07/27/18) Home Meds Active Scripts Cephalexin Monohydrate (Keflex) 500 Mg Cap, 500 MG PO QID for 7 Days, #28 CAP Prov:SANDRA CASTILLO MD 11/04/24 Oxycodone HCl (Oxycodone HCl) 5 Mg Tablet, 1 TAB PO [id number] PRN for pain for 5 Days, #10 TAB 0 Refills Prov:MELODY CARROLL MD 10/30/24 Meloxicam (Meloxicam) 7.5 Mg Tablet, 1 TAB PO DAILY for breast pain for 15 Days, #15 TAB 0 Refills Prov:MELODY CARROLL MD 10/30/24 Cephalexin (Cephalexin) 500 Mg Tablet, 1 TAB PO BID for 7 Days, #14 TAB 0 Refills Prov:JOEY STINSON PAC 10/28/24 Gabapentin (Neurontin) 300 Mg Capsule, 300 MG PO BID, #60 CAP Prov:MORENO JOSHI 03/04/22 Naproxen (Naprosyn) 500 Mg Tablet, 500 MG PO BIDPC, #60 TAB Prov:MORENO JOSHI 03/04/22 Reported Medications Pnv Cmb#21/Iron/Folic Acid ( Complete Caplet) 1 Each Tablet, 1 EACH PO DAILY, TAB 08/14/18 Past Medical History Past Medical History: UTI, Other Additional Past Medical Hx: PCOS Surgical History: Other, Surgical History Other: TUBAL LIGATION Family History: Negative Social History: Lives with family History: Not Applicable LMP: Mar 10, 2025 RN Note Reviewed/Agreed w/PFSH: Yes Review of System Dictation CONSTITUTIONAL: NEGATIVE EXCEPT FOR HPI HEAD/FACE: NEGATIVE EXCEPT FOR HPI EENT: NEGATIVE EXCEPT FOR HPI RESPIRATORY: NEGATIVE EXCEPT FOR HPI GASTROINTESTINAL/ABDOMINAL: NEGATIVE EXCEPT FOR HPI GENITOURINARY: NEGATIVE EXCEPT FOR HPI MUSCULOSKELETAL: NEGATIVE EXCEPT FOR HPI DIFFUSE LUMBAR PAIN GREATER ON THE LEFT INTEGUMENTARY: NEGATIVE EXCEPT FOR HPI NEUROLOGICAL/PSYCH: NEGATIVE EXCEPT FOR HPI HEMATOLOGIC/LYMPHATIC: NEGATIVE EXCEPT FOR HPI ALL SYSTEMS NEGATIVE, EXCEPT NOTED ABOVE. 13 POINT REVIEW OF SYSTEMS ASSESSED AND ALL NEGATIVE EXCEPT FOR ABOVE. Initial Vital Sign VS Vital Signs Date Time Temp Pulse Resp B/P (MAP) Pulse Ox O2 Delivery O2 Flow Rate FiO2 04/08/25 15:39 99.0 71 20 112/60 97 Room Air 0 04/08/25 16:05 21 Physical Exam Dictation VITAL SIGNS REVIEWED GENERAL APPEARANCE: ALERT, ORIENTED X 3, MODERATE ACUTE DISTRESS, WELL DEVELOPED, NOURISHED. HEAD AND FACE: NON-TRAUMATIC. EYES: PERRL, PINK CONJUNCTIVAS, EYELID NO TRAUMA, ANTERIOR CHAMBER WITH ARCUS SENILIS. EARS: PINNAS INTACT AND NO SIGNS OF TRAUMA OR ERYTHEMA EAR CANALS CLEAR AND NO DISCHARGE TM NO ERYTHEMA NOSE: NO DISCHARGE, NO BLEEDING. OROPHARYNX: MOUTH NORMAL, TONGUE PINK, PHARYNX CLEAR,NO ERYTHEMA, TONSILS NO EXUDATES, NO ABSCESSES NOTED, MUCOUS MEMBRANE MOIST NECK: SUPPLE, NON-TENDER, NO THYROMEGALY, NO MASSES, NO JVD, NO BRUITS BREAST:DEFERRED CHEST:NO TENDERNESS, NO CREPITUS, NO PARADOXICAL MOVEMENT, NO RETRACTIONS LUNGS:CLEAR, WELL-VENTILATED, SYMMETRIC, NO RALES, NO WHEEZING, NO RHONCHI, NO STRIDOR, GOOD BREATH SOUNDS BILATERALLY HEART: REGULAR RATE, REGULAR RHYTHM, NO MURMUR, NO GALLOPS VASCULAR: NO PERIPHERAL EDEMA, ABDOMEN: SOFT, POSITIVE BOWEL SOUNDS, NONDISTENDED, NO GUARDING, NONTENDER, NO REBOUND, NO MASSES NO HEPATOMEGALY, NO SPLENOMEGALY, NO PERRY'S SIGN, NO HERNIAS. RECTAL: DEFERRED GENITAL: DEFERRED NEUROLOGICAL: NORMAL SPEECH, MOTOR FUNCTION INTACT, SENSORY FUNCTION INTACT MUSCULOSKELETAL: NECK NONTENDER, FULL RANGE OF MOTION, DIFFUSE LUMBOSACRAL TENDERNESS GREATER ON THE LEFT NEGATIVE STRAIGHT LEG IN SKIN: COLOR PINK, DRY, NO TURGOR, NO RASH, NO LACERATIONS, NO ABRASIONS, NO CONTUSIONS. LYMPHATIC: DEFERRED Results (Laboratory/Radiology) Laboratory/Radiology Laboratory Tests Test 04/08/25 15:56 Urine Color STRAW (YELLOW) Urine Appearance CLEAR (CLEAR) Urine pH 7.0 (5.0-8.0) Urine Specific [place] 1.010 (1.001-1.031) Urine Protein NEGATIVE mg/dL (NEGATIVE) Urine Glucose (UA) NEGATIVE mg/dL (NEGATIVE) Urine Ketones NEGATIVE mg/dL (NEGATIVE) Urine Occult Blood NEGATIVE (NEGATIVE) Urine Nitrate NEGATIVE (NEGATIVE) Urine Bilirubin NEGATIVE mg/dL (NEGATIVE) Urine Urobilinogen 0.2 mg/dL (0.2-1.0) Urine Leukocyte Esterase 75 Ana/uL (NEGATIVE) H Urine RBC 0-1 /HPF (0-1) Urine WBC 11-25 /HPF (0-1) H Urine Squamous Epithelial Cells FEW /HPF (0-2) Urine Bacteria RARE /HPF (None Seen) 1715/LUMBAR X-RAY NEGATIVE Labs Reviewed?: Yes ED Course ED Course Orders Procedure Category Date Status Time Urinalysis Profile LAB 04/08/25 Complete 15:48 Ibuprofen 800 Mg Tab PHA 04/08/25 Complete (Motrin) 16:00 Culture Urine BANDAR 04/08/25 In Process 16:03 Lumbar Spine 2-3vws RAD 04/08/25 Taken 16:21 Current Medications Medications (Trade) Dose Ordered Sig/Kamala Route PRN Reason Start Time Stop Time Status Last Admin Dose Admin Ibuprofen (moTRIN) 800 mg ONCE ONCE PO 04/08/25 16:00 04/08/25 16:01 DC 04/08/25 16:17 Vital Signs Date Time Temp Pulse Resp B/P (MAP) Pulse Ox O2 Delivery O2 Flow Rate FiO2 04/08/25 16:05 98.8 69 18 125/73 100 Room Air* 0 21 04/08/25 15:39 99.0 71 20 112/60 97 Room Air 0 1715/PATIENT STATES PAIN MILDLY IMPROVED WITH MOTRIN. SHE HAS NO DESIGNATED WASTEWATER T[employer]ATMENT PLANT CHEMIST AND UNABLE TO PROVIDE ANY ADDITIONAL MEDICATIONS. Medical Decision Making MDM MEDICAL DECISION-MAKING BASE ON HPI/LUMBAR FILM AND URINALYSIS TO RULE OUT ETIOLOGY FROM GENITOURINARY URINE ESSENTIALLY NEGATIVE PATIENT WILL BE INSTRUCTED TO CONTINUE HER ANTIBIOTICS FROM [place] SHE WILL BE GIVEN IBUPROFEN AND FLEXERIL TO TAKE EVERY 8 HOURS WITH FOOD WARM COMPRESSES TO HER BACK SEE HER DOCTOR AT [facility] DX & DISP Disposition: Discharge Departure Impression: Primary Impression: Acute lumbar back pain Additional Impression: UTI (urinary tract infection) Condition: Stable Scripts Methylprednisolone (Medrol) 4 Mg Tab.ds.pk 1 TAB PO AD for 6 Days, #21 TAB 0 Refills 6 on day 1 then reduce by one tablet daily until gone Prov: JUSTIN OLIVEIRA PARTS TECHNICIAN 04/08/25 Ibuprofen (Ibuprofen 800 mg Tab) 800 Mg Tab 800 MG PO Q8H PRN for fever or pain, #30 TAB 0 Refills Prov: JUSTIN OLIVEIRAP 04/08/25 Cyclobenzaprine HCl (Cyclobenzaprine HCl) 10 Mg Tablet 1 TAB PO TID for muscle spasms for 10 Days, #30 TAB 0 Refills Prov: JUSTIN OLIVEIRA PARTS TECHNICIAN 04/08/25 Additional Instructions: FOLLOW-UP WITH PRIMARY CARE PROVIDER IN 1 TO 2 DAYS. TAKE MEDICATIONS D IRECTED HERE IN THE EMERGENCY ROOM. OKAY TO CONTINUE HOME MEDICATIONS UNLESS OTHERWISE DISCUSSED DURING YOUR VISIT IN THE EMERGENCY ROOM TODAY. RETURN TO YOUR NEAREST EMERGENCY ROOM IF SYMPTOMS WORSEN OR IF THERE IS NO IMPROVEMENT. CALL 911 IF YOU NEED IMMEDIATE ASSISTANCE. TAKE TYLENOL OR MOTRIN [id number] NEEDED AND IF NO CONTRAINDICATIONS ARE PRESENT. INCREASE ORAL HYDRATION. A WOUND CULTURE OR URINE CULTURE WAS ORDERED HERE IN THE EMERGENCY ROOM DEPARTMENT PLEASE FOLLOW-UP WITH PRIMARY CARE PROVIDER AND ADVISE THEM TO GET REPEAT PORTS FROM OUR FACILITY. IF YOU HAD ANY MARY WRAP/SPLINTS THAT WERE APPLIED HERE, PLEASE DO NOT REMOVE THEM UNTIL YOU SEE YOUR PRIMARY CARE OR SPECIALTY. CONTINUE THE ANTIBIOTICS YOU RECEIVED FROM [facility]. TAKE IBUPROFEN AND FLEXERIL EVERY 8 HOURS WITH FOOD FOR THE NEXT TWO DAYS. TAKE FLEXERIL ONLY AT NIGHT IF IT IS TOO SEDATING TAKE MEDROL DOSEPAK DIRECTED SEE YOUR PRIMARY CARE DOCTOR AT [facility] [place] IN THE NEXT 1-2 DAYS FOR MANAGE Referrals: SELF,REFERRAL (PCP) Time of Disposition: 17:18 I have reviewed the case, and I agree with, Diagnosis and Plan JUSTIN OLIVEIRA Apr 08, 2025 15:50
[2025-04-08 16:02] LABS: APPEARANCE,URINE CLEAR (CLEAR); GLUCOSE, URINE (UA) NEGATIVE (NEGATIVE); LEUKOCYTE ESTERASE ,URINE 75 Leu/uL (NEGATIVE); NITRATE,URINE NEGATIVE (NEGATIVE); OCCULT BLOOD,URINE NEGATIVE (NEGATIVE)
[2025-04-08 16:03] LABS: ADD UA MICROSCOPIC YES
[2025-04-08 16:05] LABS: SQUAMOUS EPITHELIAL CELL,UR FEW /HPF (0-2)
--- NOTE | 2025-04-08 16:05 | NUR ---
ASSUMED CARE OF THIS PATIENT AT THIS TIME.
[2025-04-08 17:05] VITALS: BP 141/80; PULSE 64; RESP 18; TEMP 98.4; O2SAT 99
[2025-04-08] MEDS ORDERED: IBUP-2077 PO (17:19)
[2025-04-08] MEDS ORDERED: CYCL-309 PO (17:19)
[2025-04-08] MEDS ORDERED: METH4TAB3 PO (17:19)
--- NOTE | 2025-04-08 18:13 | HMCIMG ---
EXAM: CR Lumbar Spine, 2 View. CLINICAL HISTORY: DIFFUSE LUMBOSACRAL PAIN 3-4 DAYS COMPARISON: None provided. FINDINGS: BONES: No acute fracture or aggressive appearing osseous lesion. ALIGNMENT: Alignment is within normal limits. No significant scoliosis. DISCS / DEGENERATIVE CHANGES: The disc spaces are preserved. SOFT TISSUES: The soft tissues are unremarkable. IMPRESSION: No acute lumbar spine abnormality evident. /[place]
== END 2025-04-08 17:51 | disposition home or self-care (01) ==
LOC: EDH 15:37
DX: M54.50 Low back pain, unspecified (principal); N39.0 Urinary tract infection, site not specified; Z79.1 Long term (current) use of non-steroidal anti-inflammatories (NSAID); Z79.899 Other long term (current) drug therapy; Z87.440 Personal history of urinary (tract) infections; Z98.51 Tubal ligation status; Z87.42 Personal history of other diseases of the female genital tract
CPT/HCPCS: 72100; 81001; 87086; 99284